=== PATIENT | female | born 1980 | race Hispanic/Latino ===

== ENCOUNTER 2016-05-29 10:02 | Emergency (ER) | payer MEDICAID, OTHER ==
[~2016-05-29] VITALS: Ht 157.5 cm; Wt 80.9 kg
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
[2016-05-29 10:08] VITALS: BP 119/62; PULSE 94; RESP 18; O2SAT 97
== END 2016-05-29 12:52 | disposition home or self-care (01) ==
LOC: SED 10:02
DX: O9A.212 Injury, poisoning and certain other consequences of external causes complicating pregnancy, second trimester (principal); S39.012A Strain of muscle, fascia and tendon of lower back, initial encounter; S16.1XXA Strain of muscle, fascia and tendon at neck level, initial encounter; S40.012A Contusion of left shoulder, initial encounter; V47.5XXA Car driver injured in collision with fixed or stationary object in traffic accident, initial encounter; Y93.89 Activity, other specified; Y92.410 Unspecified street and highway as the place of occurrence of the external cause; Y99.8 Other external cause status; R10.32 Left lower quadrant pain; R53.1 Weakness; Z3A.22 22 weeks gestation of pregnancy

== ENCOUNTER 2016-06-22 14:23 | Emergency (ER) | payer MEDICAID ==
[~2016-06-22] VITALS: Ht 157.5 cm; Wt 81.8 kg
[2016-06-22 14:30] VITALS: BP 103/67; PULSE 58; RESP 20; O2SAT 95
[2016-06-22] MEDS ORDERED: PREN-100 PO (14:34)
[2016-06-22] MEDS ORDERED: ACET1TAB12 PO (14:34)
[2016-06-22] MEDS ORDERED: TAM75UDCAP PO (14:34)
== END 2016-06-22 16:49 | disposition left against medical advice (07) ==
LOC: SED 14:23
DX: Z53.21 Procedure and treatment not carried out due to patient leaving prior to being seen by health care provider (principal)

== ENCOUNTER 2016-09-26 03:42 | Inpatient (IN) | payer MEDICAID ==
[~2016-09-26] VITALS: Ht 157.5 cm; Wt 87.5 kg
[~2016-09-26 03:42] MED LIST: ACET1TAB12 PO; PREN-100 PO; TAM75UDCAP PO
[2016-09-26] MEDS ORDERED: Oxytocin 10 Unit/mL Inj IM PRN ×2 (08:35→19:15)
[2016-09-26] MEDS ORDERED: Sodium Chloride LOK Flush 10 mL Syringe IVFLUSH PRN (08:35)
[2016-09-26] MEDS ORDERED: Penicillin G K Inj 5,000,000 UNITS in Dextrose 5% Minibag Plus 100 ML IV ONE (08:35)
[2016-09-26] MEDS ORDERED: Methylergonovine 0.2 mg/mL Inj IM PRN ×2 (08:35→19:15)
[2016-09-26] MEDS ORDERED: Oxytocin 30 Units/500 mL LR 30 UNITS in IV Premix 1 EACH IV PRN ×2 (08:35→19:15)
[2016-09-26] MEDS ORDERED: Carboprost 250 mCg/mL Inj IM PRN ×2 (08:35→19:15)
[2016-09-26] MEDS ORDERED: Ondansetron 2 mg/mL 2 mL Inj IVPUSH PRN (08:35)
[2016-09-26] MEDS ORDERED: fentaNYL-PF 50 mCg/mL 2 mL Inj IVPUSH PRN (08:35)
[2016-09-26] MEDS ORDERED: Hemorrhage Kit, Post Partum XX ONE ×2 (08:35→19:15)
[2016-09-26] MEDS ORDERED: ACYC400T2 PO (08:41)
[2016-09-26 08:58] LABS: Mean Corpuscular Hemoglobin 29.5 pg (27.0-35.0)
[2016-09-26] MEDS: Lactated Ringer's 1,000 ML IV PRN ×2 (09:25→14:41)
--- NOTE | 2016-09-26 13:31 | HP ---
[address] [address] HISTORY AND PHYSICAL PATIENT: BLAS WARNER : 1980 MR#: [id number] ADMIT: 09/26/2016 JOB ID: [id number] The patient is a 36-year-old 6, para 5 with a history of five spontaneous vaginal deliveries. Comes to the labor and delivery at 39 weeks and 1 day, estimated due date is October 02, 2016 for elective induction of labor. care was relatively complicated. The patient has history of genital herpes. She was started on suppression with acyclovir at 36 weeks. She is rubella and varicella nonimmune, vaccination was discussed. She is advanced maternal age and testing was provided. While in labor and delivery, the patient has irregular contractions spaced out about 6-7 minutes apart. Membranes are intact. labs were reviewed. She is blood group and type O-positive, rubella immune, varicella immune, group B strep culture positive. heart rate tracing is reactive, category one. Baseline 130 beats per minute. Good accelerations. PHYSICAL EXAMINATION: Vital signs: Temperature 36.7, pulse 80, respiratory rate 18. HEENT: PERRLA. Chest: Clear. Good respiratory effort. Cardiovascular: Regular rate and rhythm. The abdomen is gravid, appropriate for gestational age. Nondistended, nontender. Extremities: No pitting edema. Pelvic examination: Intact membranes. The cervix is 50% effaced, 3 cm dilated, station -3, posterior, soft. LABORATORIES: WBC count 12.0, hemoglobin 13.0, hematocrit 39.6, platelet count 261. SOCIAL HISTORY: The patient denies smoking, alcohol, illicit recreational drug use. FAMILY HISTORY: Significant for diabetes mellitus. SURGICAL HISTORY: History of five spontaneous vaginal deliveries. Two of the in born children had in born heart defect. The patient's second trimester ultrasound was normal. ASSESSMENT/PLAN: The patient is a 36-year-old 6, para 5, at 39 weeks and 1 day being admitted for induction of labor. The patient is group B strep positive. Penicillin is being started for GBS prophylaxis. Membranes are intact. She was on acyclovir for herpes suppression. Is going to be continued. Different methods of induction were discussed with the patient. Because of favorable cervix, there is no need for prostaglandins for cervical ripening. Family discussed rupturing membranes with starting Pitocin versus cervical ripening balloon until the cervix is 5-6 cm dilated when the balloon comes out and then to start the Pitocin. The patient prefers second option. Pain management is being provided with fentanyl. Epidural will be given as per patient's request.
[2016-09-26] MEDS: Penicillin G K Inj 3,000,000 UNITS in IV Premix 1 EACH IV SCH ×3 (13:32→21:30)
[2016-09-26] MEDS ORDERED: fentaNYL 2 mCg/mL-Bupivicaine 0.125% 100 mL Premix EPIDURAL ONE (14:41)
[2016-09-26] MEDS: Lactated Ringer's 1,000 ML IV SCH ×2 (15:18→18:30)
[2016-09-26] MEDS ORDERED: Lactated Ringer's 500 ML IV ONE (15:18)
--- NOTE | 2016-09-26 15:18 | PCM.HPANE ---
Patient Data Surgeon Admitting Provider:Andrez Nur MD Attending Provider:Andrez Nur MD Primary Care Physician:Andrez Nur MD Other Provider:Kota Caldwell Anesthesia Reason for Visit Induction INDUCTION Ht/WT & BMI Body Mass Index Allergies Coded Allergies: No Known Allergies (Unverified , 06/22/16) Past Anesthesia History Anesthesia History: Denies:: Abnormal Airway, Anesthesia Reactions, Difficult Intubation, Fam Anesthesia Reaction, Fam Malignant Hypertherm, Malignant Hyperthermia Diabetes History Hx Diabetes?: No Medications Reported Medications Acyclovir 400 Mg [id number] Mg PO BID Ref 0 09/26/16 Vits #90/Iron Fum/FA ( Formula Tablet)1 Each Tablet1 Each PO DAILY 06/22/16 Discontinued Reported Medications Oseltamivir Phosphate (Tamiflu)75 Mg [id number] Mg PO BID 06/22/16 Acetaminophen/Codeine 300-30mg (Tylenol/Codeine #3)1 Each Tablet1-2 Tablet PO Q6H PRN For Cough 06/22/16 History History of ENT Problems?: No HEENT History: Denies:: Abnormal Airway Cataracts Difficult Intubation Dysphagia Glaucoma Hearing Problem Sinus Problem TMJ Denture Type: None Teeth Condition: Within Normal Limits Hx of Heart Problems?: No Cardiovascular History: Denies:: AICD Abdominal Aortic Aneurism Atrial Fibrillation Cardiac Surgery Chest Pain Congestive Heart Failure Coronary Artery Disease Edema Heart Murmur Hypertension Irregular Heartbeat Pacemaker Peripheral Vascular Rheumatic Fever Thrombophlebitis Valvular Heart Disease Hx of Respiratory Problem?: No Respiratory History: Denies:: Asthma COPD Chest Surgery Cough Dyspnea Emphysema Hemoptysis Oxygen Administration Pneumonia Pulmonary Embolism Tuberculosis Use of C-PAP Machine Use of Inhalers / NEBS Hx Neurologic Problems?: No Neurological History: Denies:: Alzheimer's Disease CVA Dementia Dizziness Headaches Multiple Sclerosis Parkinson's Disease Peripheral Neuropathy Seizures TIA Hx of GI Problems?: No Gastrointestinal History: Denies:: Cirrhosis Diverticulitis Gall Bladder Disease Gastroesphageal Reflux Gastrointestinal Bleeding Heartburn Hepatitis Hiatal Hernia Liver Disease Rectal Bleeding Hx of Problems?: No Genitourinary History: Denies:: HX of Hemodialysis Kidney Stones Urinary Tract Infection HX of Peritoneal Dialysis: No Female Hx: Positive for:: Currently Denies:: Endometriosis Pelvic Inflammatory Problems with Breasts? Skin History: Denies:: History Skin Disorders? Pressure Ulcers Hx Musculoskeletal Problems?: No Musculoskeletal History: Denies:: Back Injury Degenerative Joint Fibromyalgia Joint Replacement Musculoskeletal Trauma Myasthenia Gravis Osteoarthritis Rheumatoid Arthritis Systemic Lupus Hx of Psycho/Social Problems?: No Psycho Social History: Denies:: Anxiety Bipolar Disorder Hx Depression Suicide Attempt Hx Surgeries?: Yes (Appy, hernia) Other History: Denies:: Cancer Endocrine Disease Hospitalization Thyroid Disease History Blood Transfusions: Denies:: Accept Blood Products? Blood Transfuse Reaction Blood Transfusions Hx Diabetes: No Hx Alcohol Use: NoHx Substance Use: No Smoking Status: Never Smoker Stop/Bang Risk Assessment Category Category 1A: Patient has history of documented sleep apnea, and HAS NOT received any narcotic, sedative or anesthesia administration during this stay. Category 1B: Patient has history of documented sleep apnea, and HAS received any narcotic , sedative or anesthesia administration during this stay Category 2: Patient has SUSPECTED Obstructive Sleep Apnea, and HAS received any narcotic , sedative or anesthesia administration during this stay. Category 3: Patient has SUSPECTED Obstructive Sleep Apnea and HAS NOT received narcotic, sedative or anesthesia administration during this stay. Category 4: Outpatient in Procedural Areas with known sleep apnea or who screen positive for High Risk via the STOP/BANG questionnaire. Exam Exam General Appearance: Alert, Oriented X3, Cooperative, No Acute Distress HEENT/AIRWAY: MP 2, Neck Movement (FROM), Mouth Opening (3 FBMO) Lungs: Clear to Auscultation, Normal Air Movement Heart: Exam Unremarkable, Regular Rate/Rhythm, No Murmurs/Rubs/Gallops Meds/Labs/Diagnostics Admission Meds Current Medications Penicillin G Potassium 5916902 units/Dextrose/ Water 100 ml @ 240 mls/hr ONCE ONCE IV Last administered on 09/26/16 09:25; Start 09/26/16 at 08:35; Stop at 09:22; Status DC Penicillin G Potassium/ Dextrose/Premix (Pfizerpen Inj/ IV Premix) 50 ml @ 100 mls/hr Q4H IV Last administered on 09/26/16 13:32; Start 09/26/16 at 13:30 Labs Test 09/26/16 08:00 White Blood Count 12.0th/mm3 (3.8-10.1) Red Blood Count 4.40mil/mm3 (3.90-5.20) Hemoglobin 13.0g/dL (12.0-15.6) Hematocrit 39.6% (35.0-46.0) Mean Corpuscular Volume 90.0fL (81-100) Mean Corpuscular Hemoglobin 29.5pg (27.0-35.0) Mean Corpuscular Hemoglobin Concent 32.8% (32.0-37.0) Red Cell Distribution Width 14.1% (12.3-15.4) Platelet Count 261bil/L (150-400) Plan Impression Patient chart reviewed, patient interviewed and anesthestic plan with risks, benefits, and alternatives discussed, and informed consent obtained. NPO per Anesth. Guidelines: Yes ASA Physical Status: ASA1 Normal Healthy Anesthetic Plan: Epidural Bene/Risks/Altern/Consents: Yes HP Complete Prior to Induction: Yes Marcus De Los Santos MD Sep 26, 2016 14:43
[2016-09-26] MEDS ORDERED: Atropine 1 mg/10 mL (Code) Syringe IVPUSH PRN (15:20)
[2016-09-26] MEDS ORDERED: fentaNYL 2 mCg/mL-Bupiv 0.125% 100 ML EPIDURAL SCH (15:20)
[2016-09-26] MEDS ORDERED: EPHEDrine Sulfate 50 mg/mL Inj IVPUSH PRN (15:20)
[2016-09-26] MEDS ORDERED: Lactated Ringer's 1,000 ML IV SCH (19:13)
[2016-09-26] MEDS ORDERED: LANOlin HPA 7 Gm Ointment TOPICAL PRN (19:15)
[2016-09-26] MEDS ORDERED: oxyCODONE-Acetamin 5-325 mg Tablet PO PRN (19:15)
--- NOTE | 2016-09-26 20:58 | OP ---
[address] [address] OPERATIVE REPORT PATIENT: BLAS WARNER : 1980 MR#: [id number] ADMIT: 09/26/2016 JOB ID: [id number] DATE OF SURGERY: 09/26/2016 PREOPERATIVE DIAGNOSIS(ES): 1. Intrauterine at 39 weeks and 1 day. Group B strep positive. 2. Advanced maternal age. 3. Previous history of two children with congenital heart disease. 4. Rubella and varicella nonimmune. 5. History of herpes on suppression. 6. with hepatitis of unknown etiology if it is viral or not. POSTOPERATIVE DIAGNOSIS(ES): 1. Intrauterine at 39 weeks and 1 day. Group B strep positive. 2. Advanced maternal age. 3. Previous history of two children with congenital heart disease. 4. Rubella and varicella nonimmune. 5. History of herpes on suppression. 6. with hepatitis of unknown etiology if it is viral or not. 7. Status post normal vaginal delivery. PROCEDURE: Spontaneous vaginal delivery and repair of first-degree perineal laceration. SURGEON: Han Minor MD. RULING TECHNICIAN: None. ANESTHESIA: Epidural. ESTIMATED BLOOD LOSS: 300 mL. TIME OF DELIVERY: 1847. TIME OF PLACENTAL DELIVERY: 1856. COMPLICATIONS: None. OUTCOME: Male infant, weight 3227 g. Apgars 9 and 9 at one and five minutes respectively. Meconium-stained amniotic fluid. Three vessels cord intact placenta. PROCEDURAL DESCRIPTION: This is a 36-year-old 6, para 5-0-0-5 who was admitted for elective induction of labor at 39 weeks and 1 days gestation. On admission, cervix was 3 cm dilated. Induction was started with placing Hernandez balloon that was inserted at 12:40 p.m. Then Pitocin was started at 14:05. The patient received epidural at 14:57. Then, the Hernandez balloon fell out at 16:20. Cervix found to be 6 cm dilated. Then spontaneous rupture of membrane noted at 16:59. On reassessment at 17:35, cervix noted to be still 6 cm and forebag was palpable. So the forebag was ruptured. Light meconium-stained amniotic fluid was noted. Patient found to be completely dilated at 18:38. She pushed effectively and delivered within three contractions. Delivered at 18:47 a male infant in cephalic presentation in left occiput anterior position with no nuchal cord. No shoulder dystocia, shoulders delivered without difficulty and infant was placed on the maternal abdomen. Delayed cord clamping was performed after 1 minute. Cost Accounting Manager was present in the room for meconium-stained amniotic fluid. Apgars 9 at one and 9 at five minutes respectively. Placenta delivered spontaneously intact at 18:56 with a three-vessel cord. Placenta was discarded after examination. First-degree perineal laceration was repaired with a 3-0 Vicryl in a running, interlocking fashion. No local anesthesia was needed. Oxytocin was started after delivery of the placenta and misoprostol 800 mcg was placed rectally prophylactically for hemorrhage. Fundus was firm. Bleeding was minimal at the end of the procedure. Mother and infant are recovering in the delivery room. All sponge, instrument, and needle counts were correct x2. I, Han Minor MD, was present and scrubbed for the entire procedure.
[2016-09-26] MEDS ORDERED: diphenhydrAMINE 25 mg Capsule PO PRN (21:00)
[2016-09-26] MEDS ORDERED: Benzocaine (Dermoplast) 20% 60 Gm Spray TOPICAL PRN (21:00)
[2016-09-26] MEDS ORDERED: Witch Hazel-Glycerin Pads TOPICAL PRN (21:00)
[2016-09-26] MEDS ORDERED: Measles-Mumps-Rubella Vaccine 0.5 mL Inj SUBQ ONE (21:00)
--- NOTE | 2016-09-27 01:26 | PCM.ANEP1 ---
Post Anesthesia PACU Phase 1 Assessment Anesthetic Administered: Epidural Level of Alertness: Awake, talking STEVENSON's with Equal Strength: Yes Pain: No Nausea or Vomiting: No CV Function & Hydration Stable: No Airway Device: Oxygen Delivery: Room Air Lungs: Clear to Auscultation, Normal Air Movement Dermatome Level: Full Sensation PACU Phase 2 Assessment Complications: No Follow up Care: N/A Patient Instructions Provided: N/A Marcus De Los Santos MD Sep 27, 2016 01:26
[2016-09-27 07:31] LABS: Mean Corpuscular Hemoglobin 29.7 pg (27.0-35.0); Mean Corpuscular Volume 90.6 fL (81-100)
[2016-09-27] MEDS: Ascorbic Acid 500 mg Tablet PO SCH ×2 (08:34→18:30)
[2016-09-28] MEDS ORDERED: IBUP800T28 PO (07:37)
[2016-09-28] MEDS ORDERED: Ascorbic Acid PO (07:37)
[2016-09-28] MEDS ORDERED: FERR-74 PO (07:37)
[2016-09-28] MEDS ORDERED: DOCU-41 PO (07:37)
--- NOTE | 2016-09-28 07:38 | PCM.DIOB ---
Obstetrical Disch Instruction Date of Service: Sep 28, 2016 Dates of Hospitalization Date of Hospital Admission Sep 26, 2016 at 07:06 Providers Admitting Physician: Andrez Nur MD Primary Care Physician: Andrez Nur MD Attending Physician: Andrez Nur MD Discharge Diagnosis Problems: (1) (spontaneous vaginal delivery) Status: Acute ICD Code: O80 Diet Discharge Diet: No restrictions Activity Discharge Activity-General: Pelvic Rest for 6 weeks, Try not to overdue, Be up and about Dressing and Incisional Care Hygiene: May shower, Perineal care, Sitz bath, Dermoplast spray, Witch Gala pads Follow Up Plan Follow-up appointment: Weeks (6) Tanya Silva MD Sep 28, 2016 07:38
--- NOTE | 2016-09-28 07:43 | PCM.DC.OB ---
Obstetrical Discharge Summary Date of Service Sep 28, 2016 Date of hospital admission Sep 26, 2016 at 07:06 Date of Discharge: Sep 28, 2016 Providers Admitting Physician: Andrez Nur MD Primary Care Physician: Andrez Nur MD Attending Physician: Andrez Nur MD Problems: (1) (spontaneous vaginal delivery) Status: Acute ICD Code: O80 Brief History and Physical: This is a 36-year-old 6, para 5-0-0-5 who was admitted for elective induction of labor at 39 weeks and 1 days gestation. On admission, cervix was 3 cm dilated. Induction was started with placing Hernandez balloon that was inserted at 12:40 p.m. Then Pitocin was started at 14:05. The patient received epidural at 14:57. Then, the Hernandez balloon fell out at 16:20. Cervix found to be 6 cm dilated. Then spontaneous rupture of membrane noted at 16:59. On reassessment at 17:35, cervix noted to be still 6 cm and forebag was palpable. So the forebag was ruptured. Light meconium-stained amniotic fluid was noted. Patient found to be completely dilated at 18:38. She pushed effectively and delivered within three contractions. Delivered at 18:47 a male in cephalic presentation in left occiput anterior position with no nuchal cord. No shoulder dystocia, shoulders delivered without difficulty and infant was placed on the maternal abdomen. Delayed cord clamping was performed after 1 minute. Automotive Paint Technician was present in the room for meconium-stained amniotic fluid. Apgars 9 at one and 9 at five minutes respectively. Placenta delivered spontaneously intact at 18:56 with a three-vessel cord. Placenta was discarded after examination. First-degree perineal laceration was repaired with a 3-0 Vicryl in a running, interlocking fashion. No local anesthesia was needed. Oxytocin was started after delivery of the placenta and misoprostol 800 mcg was placed rectally prophylactically for hemorrhage. Fundus was firm. Bleeding was minimal at the end of the procedure. Mother and are recovering in the delivery room. All sponge, instrument, and needle counts were correct x2. Hospital Course: This is a 36-year-old 6, para 5-0-0-5 who was admitted for elective induction of labor at 39 weeks and 1 days gestation. On admission, cervix was 3 cm dilated. Induction was started with placing Hernandez balloon that was inserted at 12:40 p.m. Then Pitocin was started at 14:05. The patient received epidural at 14:57. Then, the Hernandez balloon fell out at 16:20. Cervix found to be 6 cm dilated. Then spontaneous rupture of membrane noted at 16:59. On reassessment at 17:35, cervix noted to be still 6 cm and forebag was palpable. So the forebag was ruptured. Light meconium-stained amniotic fluid was noted. Patient found to be completely dilated at 18:38. She pushed effectively and delivered within three contractions. Delivered at 18:47 a male infant in cephalic presentation in left occiput anterior position with no nuchal cord. Her stay was uncomplicated. ([Ascorbic Acid]) 500 MG TABLET 500 MG PO BIDWM Prescribed by: TANYA SILVA MD Acyclovir (Acyclovir) 400 Mg Tablet 400 MG PO BID (Reported) Last Taken: Unknown Dose on 09/26/16 Docusate Sodium (Colace) 100 Mg Capsule 100 MG PO BID Prescribed by: TANYA SILVA MD Ferrous Sulfate (Feosol) 325 Mg Tablet 325 MG PO BIDWM Prescribed by: TANYA SILVA MD Ibuprofen (Ibuprofen) 800 Mg Tablet 800 MG PO Q6H PRN PRN For Pain Prescribed by: TANYA SILVA MD Vits #90/Iron Fum/FA ( Formula Tablet) 1 Each Tablet 1 EACH PO DAILY (Reported) Discontinued Medications Acetaminophen/Codeine 300-30mg (Tylenol/Codeine #3) 1 Each Tablet 1-2 TABLET PO Q6H PRN PRN For Cough (Reported) Oseltamivir Phosphate (Tamiflu) 75 Mg Capsule 75 MG PO BID (Reported) Discharge Diet: No restrictions Discharge Activity-General: Pelvic Rest for 6 weeks, Try not to overdue, Be up and about Tanya Silva MD Sep 28, 2016 07:42
--- NOTE | 2016-09-28 07:46 | PCM.PNOBPP ---
Subjective Date of Service Sep 28, 2016 Post : Spontaneous Vaginal Delivery Visit History The patient is a 36-year-old 6, para 5 with a history of five spontaneous vaginal deliveries. Comes to the labor and delivery at 39 weeks and 1 day, estimated due date is October 02, 2016 for elective induction of labor. care was relatively complicated. The patient has history of genital herpes. She was started on suppression with acyclovir at 36 weeks. She is rubella and varicella nonimmune, vaccination was discussed. She is advanced maternal age and testing was provided. Subjective No complaints. She does desire permanent sterilization, but she did not sign [facility] paperwork prenatally. Will plan for interval tubal . Lochia: Normal Pain Management: PO pain meds Gastrointestinal: Good Appetite, No N/V Postop Activity: Ambulating Independently Labs Laboratory Tests 09/27/16 07:00: White Blood Count 12.6, Red Blood Count 4.35, Hemoglobin 12.9, Hematocrit 39.4, Mean Corpuscular Volume 90.6, Mean Corpuscular Hemoglobin 29.7, Mean Corpuscular Hemoglobin Concent 32.7, Red Cell Distribution Width 14.0, Platelet Count 247 Exam Vital Signs Vital Signs: VS reviewed, stable Exam Abdomen: Fundus firm Extremities: No cords Heart: Exam Unremarkable General: Alert, Oriented X3, Cooperative, No Acute Distress OB Post Assessment/Plan Assessment doing well. Problems: (1) (spontaneous vaginal delivery) Status: Acute ICD Code: O80 (2) care and examination immediately after delivery Plan: Discharge home today. Status: Acute ICD Code: Z39.0 Tanya Silva MD Sep 28, 2016 07:45
[2016-09-28] MEDS: Ascorbic Acid 500 mg Tablet PO SCH (08:39)
[2016-09-28 08:48] VITALS: BP 116/61; PULSE 86; RESP 16
== END 2016-09-28 09:30 | disposition home or self-care (01) | DRG 775 ==
LOC: FBC 07:06
PROVIDERS: ADMIT Legal Medicine; ATTEND Legal Medicine
PROC: 10E0XZZ Delivery of Products of Conception, External Approach (ICD-10-PCS; principal; 2016-09-26)
PROC: 0HQ9XZZ Repair Perineum Skin, External Approach (ICD-10-PCS; 2016-09-26)
PROC: 0U7C7ZZ Dilation of Cervix, Via Natural or Artificial Opening (ICD-10-PCS; 2016-09-26)
DX: O70.0 First degree perineal laceration during delivery (principal); O99.824 Streptococcus B carrier state complicating childbirth; O09.523 Supervision of elderly multigravida, third trimester; Z3A.39 39 weeks gestation of pregnancy; O77.0 Labor and delivery complicated by meconium in amniotic fluid; Z37.0 Single live birth